=== PATIENT | female | born 1975 | race Caucasian/White ===

== ENCOUNTER → 2023-09-17 17:47 | Outpatient (REF) | payer OTHER, SELFPAY | LOC: HWWDC 17:47 | PROVIDERS: ATTENDING PHYSICIAN Family Medicine | DX: Z12.31 Encounter for screening mammogram for malignant neoplasm of breast (principal) | CPT/HCPCS: 77063; 77067 ==

== ENCOUNTER → 2024-11-09 08:17 | Outpatient (REF) | payer OTHER, SELFPAY | LOC: HWRAD 08:17 | PROVIDERS: ATTENDING PHYSICIAN Family Medicine | DX: E28.319 Asymptomatic premature menopause (principal); Z12.31 Encounter for screening mammogram for malignant neoplasm of breast | CPT/HCPCS: 77063; 77067; 77080 ==

== ENCOUNTER 2024-12-24 10:37 | Emergency (ER) | payer OTHER, SELFPAY ==
[2024-12-24] VITALS (9 sets, daily range): BP systolic 111–151; BP diastolic 80–105; BMI 17.8
[2024-12-24 11:23] LABS: % Basophils 0.2 % (0-2); % Eosinophils 0.1 % (0-6); % Immature Granulocytes 0.2 % (0-0.5); % Monocytes 10.3 % (1.7-9.3); % Neutrophils 83.2 % (42.2-75.2); Absolute Lymphocytes 0.5 10^3/uL (1.2-3.4); Absolute Monocytes 0.9 10^3/uL (0.1-0.6); Hematocrit 40.2 % (37.0-47.0); Hemoglobin 14.1 g/dL (12.0-16.0); Mean Corp Hgb Conc. 35.1 g/dL (33.0-37.0); Mean Corpuscular Hgb 30.2 pg (27.0-31.0); Mean Corpuscular Volume 86.1 fL (81.0-99.0); Mean Platelet Volume 8.7 fL (7.4-10.4); Nucleated Red Blood Cells % 0 %; Platelet Count 261 10^3/uL (130-400); Red Blood Cell Count 4.67 10^6/uL (4.20-5.40); Red Cell Dist. Width 12.9 % (11.5-14.5); White Blood Cell Count 8.4 10^3/uL (4.8-10.8)
[2024-12-24 11:43] LABS: ALT (SGPT) 33 U/L (0-35); AST (SGOT) 36 U/L (14-36); Albumin 4.3 g/dl (3.5-5.0); Alkaline Phosphatase 111 U/L (38-126); Blood Urea Nitrogen 17 mg/dl (7-17); Calcium 9.3 mg/dl (8.4-10.2); Carbon Dioxide 25 mmol/L (22-30); Chloride 102 mmol/L (98-107); Glucose 120 mg/dl (70-99); Lipase 36 U/L (23-300); Potassium 4.5 mmol/L (3.5-5.1); Sodium 134 mmol/L (135-145); Total Bilirubin 0.8 mg/dl (0.2-1.3); Total Protein 7.4 g/dl (6.3-8.2); eGFR > 60.00
[2024-12-24 11:45] LABS: Troponin I < 0.012 ng/ml
--- NOTE | 2024-12-24 13:19 | ED.GENMED ---
History of Present Illness
<Gabrielle Rangel PA-C - Last Filed: 12/24/24 13:33>
General
Chief Complaint: Chest Pain
Source: patient
Exam Limitations: none
Time Seen by Provider: 12/24/24 12:38
Nursing documentation reviewed up to this point in time: agreed with
History of Present Illness
History of Present Illness:
pt is a 49 y/o F with no chronic problems
here with 2 dasy GERD symptoms in her throat and chest and then today around 830 am started feeling worsening chest pain in the center of chest through to her back
it feels a little better now than it did earlier
she also felt achiness all over, and some chilsl like she might come down with something or a fever
took tylenol around 830 and fdeels that the chills/achiness is better
still has the reflux symptoms
started pepcid last night and today
she also woke up with some tingling in her hands
that resolved
she has not had any nausea, vomiting, sweatiness, cough, cold, back pain, urianry sytpmoms, etc
Past History
<Gabrielle Rangel PA-C - Last Filed: 12/24/24 13:33>
Past History
ED Past Medical History: None
ED Past Surgical History: Orthopedic
Social History
Living: with family
Course
<Gabrielle Rangel PA-C - Last Filed: 12/24/24 13:33>
Orders/Labs/Results
Orders:
Orders
12/24/24 10:40
EKG [Electrocardiogram (*1)] Stat
Reason for Study: Chest Pain
EKG- Treatment ONCE
12/24/24 11:00
Complete Blood Count/With Diff Urgent
Comprehensive Metabolic Panel Urgent
Lipase Urgent
Magnesium Urgent
Phosphorus Urgent
TSH Reflex To Free T4 Urgent
Comment: ADD ON
Troponin I Urgent
12/24/24 13:08
Add On- LAB Urgent
Tests Added?: mag, phos
12/24/24 13:10
CT Chest PE Study Urgent
Comment:
Reason For Exam: chest pain, tingling in arms, tachy
0.9% Sodium Chloride 1000 ml [Nss] 1,000 ml IV BOLUS
Mag Hydrox/Al Hydrox/Simeth [Maalox] 30 ml Phenobarb/Hyoscy/Atropine/Scop [] 10 ml PO NOW
12/24/24 13:11
EKG- Treatment ONCE
12/24/24 13:23
Mag Hydrox/Al Hydrox/Simeth [Maalox] 30 ml .ROUTE .STK-MED ONE
Phenobarb/Hyoscy/Atropine/Scop [] 10 ml .ROUTE .STK-MED ONE
12/24/24 13:34
COVID-19 Antigen Urgent
Source: Nasal Swab
Influenza A+B Rapid Molecular Urgent
BARBARA Source: Nasal Swab
Specimen Description:
12/24/24 14:21
Troponin I Urgent
12/24/24 14:30
Electrocardiogram (*1) Urgent
Reason for Study: Chest Pain
12/24/24 14:44
Acetaminophen [Tylenol] 1,000 mg PO NOW STA
12/24/24 14:47
Ketorolac [Toradol] 15 mg IV NOW STA
12/24/24 16:25
Add On- LAB Urgent
Tests Added?: tsh reflex t4
0.9% Sodium Chloride 500 ml [Nss] 500 ml IV BOLUS
Abnormal Lab Results
12/24/24
11:00
Absolute Neuts (auto) 7.0 H 10^3/uL
(1.4-6.5)
Absolute Lymphs (auto) 0.5 L 10^3/uL
(1.2-3.4)
Absolute Monos (auto) 0.9 H 10^3/uL
(0.1-0.6)
Neutrophils % 83.2 H %
(42.2-75.2)
Lymphocytes % 6.0 L %
(20.5-51.1)
Monocytes % 10.3 H %
(1.7-9.3)
Sodium 134 L mmol/L
(135-145)
Glucose 120 H mg/dl
(70-99)
12/24/24 11:00
12/24/24 11:00
Vital Signs
Initial and Last Documented VS:
Initial Vital Signs
Temp Pulse Resp BP Pulse Ox
99.0 F 126 18 151/105 99
12/24/24 10:50 12/24/24 10:50 12/24/24 10:50 12/24/24 10:50 12/24/24 10:50
Last Documented Vital Signs
Temp Pulse Resp BP Pulse Ox
98.5 F 126 23 145/102 100
12/24/24 14:46 12/24/24 14:46 12/24/24 14:46 12/24/24 14:46 12/24/24 14:46
<Chrystal Terry MD - Last Filed: 12/24/24 16:45>
Orders/Labs/Results
Orders:
Orders
12/24/24 10:40
EKG [Electrocardiogram (*1)] Stat
Reason for Study: Chest Pain
EKG- Treatment ONCE
12/24/24 11:00
Complete Blood Count/With Diff Urgent
Comprehensive Metabolic Panel Urgent
Lipase Urgent
Magnesium Urgent
Phosphorus Urgent
TSH Reflex To Free T4 Urgent
Comment: ADD ON
Troponin I Urgent
12/24/24 13:08
Add On- LAB Urgent
Tests Added?: mag, phos
12/24/24 13:10
CT Chest PE Study Urgent
Comment:
Reason For Exam: chest pain, tingling in arms, tachy
0.9% Sodium Chloride 1000 ml [Nss] 1,000 ml IV BOLUS
Mag Hydrox/Al Hydrox/Simeth [Maalox] 30 ml Phenobarb/Hyoscy/Atropine/Scop [] 10 ml PO NOW
12/24/24 13:11
EKG- Treatment ONCE
12/24/24 13:23
Mag Hydrox/Al Hydrox/Simeth [Maalox] 30 ml .ROUTE .STK-MED ONE
Phenobarb/Hyoscy/Atropine/Scop [] 10 ml .ROUTE .STK-MED ONE
12/24/24 13:34
COVID-19 Antigen Urgent
Source: Nasal Swab
Influenza A+B Rapid Molecular Urgent
BARBARA Source: Nasal Swab
Specimen Description:
12/24/24 14:21
Troponin I Urgent
12/24/24 14:30
Electrocardiogram (*1) Urgent
Reason for Study: Chest Pain
12/24/24 14:44
Acetaminophen [Tylenol] 1,000 mg PO NOW STA
12/24/24 14:47
Ketorolac [Toradol] 15 mg IV NOW STA
12/24/24 16:25
Add On- LAB Urgent
Tests Added?: tsh reflex t4
0.9% Sodium Chloride 500 ml [Nss] 500 ml IV BOLUS
Abnormal Lab Results
12/24/24
11:00
Absolute Neuts (auto) 7.0 H 10^3/uL
(1.4-6.5)
Absolute Lymphs (auto) 0.5 L 10^3/uL
(1.2-3.4)
Absolute Monos (auto) 0.9 H 10^3/uL
(0.1-0.6)
Neutrophils % 83.2 H %
(42.2-75.2)
Lymphocytes % 6.0 L %
(20.5-51.1)
Monocytes % 10.3 H %
(1.7-9.3)
Sodium 134 L mmol/L
(135-145)
Glucose 120 H mg/dl
(70-99)
12/24/24 11:00
12/24/24 11:00
Vital Signs
Initial and Last Documented VS:
Initial Vital Signs
Temp Pulse Resp BP Pulse Ox
99.0 F 126 18 151/105 99
12/24/24 10:50 12/24/24 10:50 12/24/24 10:50 12/24/24 10:50 12/24/24 10:50
Last Documented Vital Signs
Temp Pulse Resp BP Pulse Ox
98.5 F 126 23 145/102 100
12/24/24 14:46 12/24/24 14:46 12/24/24 14:46 12/24/24 14:46 12/24/24 14:46
ED Attending Note
<Gabrielle Rangel PA-C - Last Filed: 12/24/24 13:33>
-
Portions of this chart may have been created with voice recognition software.� Occasional wrong word or��sound alike� substitutions may have occurred due to the inherent limitations of voice recognition software.
<Chrystal Terry MD - Last Filed: 12/24/24 16:45>
ED Attending Note
Patient seen and examined by attending physician: Yes
I performed the substantive portion of visit, reviewed & personally made and approve the management plan that is documented in note by myself or CAMILLE.: Yes
ED Attending Note:
Patient appears nontoxic and well. She denies shortness of breath. Her troponins are both negative. She admits to feeling chills and bodyaches. I rechecked her oral temp is 99.2. Her heart rate is 110. She is still refusing a rectal
temperature. I suspect her heart rate is elevated due to mild fever. CT shows no sign of PE, pneumonia or aortic dissection. Given she has 2 normal troponins, it is doubtful she is ACS. On exam, her heart sounds tachycardic and regular. Her
lungs are clear. She appears well and comfortable
Discharge Plan
Departure
Prescriptions:
No Action
Advil
600 mg PO Q6H PRN (Reason: back pain)
Referrals:
Leatha Gonzalez DO [Family Provider] -
Interventions
Interventions:
*Risk Screen - Suicide Last Done: 12/24/24 10:50
*General Assessment Last Done: 12/24/24 10:50
*Neglect/Abuse Screening Last Done: 12/24/24 13:07
*ED- Fall Risk Assessment Last Done: 12/24/24 13:07
*ED COVID-19 Vaccine History Last Done: 12/24/24 13:07
ED- Cardiac Assessment Last Done: 12/24/24 13:07
Discharge Date and Time
Print Language: CYMRO
[2024-12-24] MEDS: MAALOX 40 PO (13:26)
[2024-12-24] MEDS: NSS 1000 IV (13:27)
[2024-12-24 13:52] LABS: Phosphorus 3.4 mg/dl (2.5-4.5)
[2024-12-24 13:54] LABS: COVID-19 Antigen Negative (Negative)
[2024-12-24 14:49] LABS: Troponin I < 0.012 ng/ml
--- NOTE | 2024-12-24 14:54 | EDRN ---
the pts HR went from the 90's to the 120-130's, this RN notified Gabrielle BLACKMAN, EKG performed, temperature checked and the pt is afebrile
[2024-12-24] MEDS: TORADOL 15 MG IV (15:10)
[2024-12-24] MEDS: TYLENOL 1000 MG PO (15:10)
[2024-12-24] MEDS: NSS 500 IV (16:29)
[2024-12-24 17:43] LABS: TSH Reflex To Free T4 0.91 uIU/ml (0.47-4.68)
[2024-12-24 17:51] LABS: Urine Albumin Negative (Neg - Trace); Urine Bilirubin Negative (Negative); Urine Character Clear (Clear); Urine Glucose Negative (Negative); Urine Ketone 3+ (Negative); Urine Leukocyte Negative (Negative); Urine Nitrite Negative (Negative); Urine Occult Blood 2+ (Negative); Urine Urobilinogen Negative (Neg - 1+)
[2024-12-24 17:56] LABS: Urine Color Straw
[2024-12-24 18:27] LABS: Urine Red Blood Cell 16-20 /HPF (0-2)
[2024-12-24 18:28] LABS: Urine White Cell 0-2 /HPF (0-5)
== END 2024-12-24 17:46 | disposition home or self-care (01) ==
LOC: EMR 10:37
PROVIDERS: Emergency Medicine; Physician Assistant; EMERGENCY PHYSICIAN Emergency Medicine; FAMILY PHYSICIAN Family Medicine
DX: K20.90 Esophagitis, unspecified without bleeding (principal); R07.9 Chest pain, unspecified; Z11.52 Encounter for screening for COVID-19
CPT/HCPCS: 96374; 96361; 99284; 71275; 80053; 81003; 81015; 83690; 83735; 84100; 84443; 84484; 85025; 87502; 87811; 93005; Q9967

== ENCOUNTER 2024-12-26 23:40 | Inpatient (IN) | payer OTHER, SELFPAY ==
[2024-12-26 17:01] VITALS: BP 155/102
[2024-12-26 17:28] LABS: % Basophils 0.6 % (0-2); % Eosinophils 0.6 % (0-6); % Immature Granulocytes 0.2 % (0-0.5); % Lymphocytes 9.4 % (20.5-51.1); % Monocytes 14.9 % (1.7-9.3); % Neutrophils 74.3 % (42.2-75.2); Absolute Lymphocytes 0.5 10^3/uL (1.2-3.4); Absolute Monocytes 0.8 10^3/uL (0.1-0.6); Hematocrit 35.4 % (37.0-47.0); Hemoglobin 12.8 g/dL (12.0-16.0); Mean Corp Hgb Conc. 36.2 g/dL (33.0-37.0); Mean Corpuscular Hgb 30.3 pg (27.0-31.0); Mean Corpuscular Volume 83.7 fL (81.0-99.0); Mean Platelet Volume 8.5 fL (7.4-10.4); Nucleated Red Blood Cells % 0 %; Platelet Count 232 10^3/uL (130-400); Red Blood Cell Count 4.23 10^6/uL (4.20-5.40); Red Cell Dist. Width 12.7 % (11.5-14.5); White Blood Cell Count 5.4 10^3/uL (4.8-10.8)
[2024-12-26 17:44] LABS: ALT (SGPT) 50 U/L (0-35); AST (SGOT) 49 U/L (14-36); Alkaline Phosphatase 112 U/L (38-126); Blood Urea Nitrogen 9 mg/dl (7-17); Calcium 8.4 mg/dl (8.4-10.2); Carbon Dioxide 21 mmol/L (22-30); Chloride 104 mmol/L (98-107); Glucose 137 mg/dl (70-99); Potassium 3.5 mmol/L (3.5-5.1); Sodium 134 mmol/L (135-145); Total Bilirubin 0.6 mg/dl (0.2-1.3); Total Protein 6.6 g/dl (6.3-8.2); eGFR > 60.00
[2024-12-26 17:45] LABS: Lipase 33 U/L (23-300)
[2024-12-26 17:51] LABS: COVID-19 Antigen Negative (Negative)
[2024-12-26 20:50] VITALS: BP 143/95
[2024-12-26] MEDS: PROTONIX IV 40 MG IV (20:52)
[2024-12-26 20:54] VITALS: BMI 18.4
[2024-12-26 21:00] VITALS: BP 141/92
[2024-12-26] MEDS: TYLENOL 1000 MG PO (21:16)
[2024-12-26 21:22] LABS: HCG, Serum Qualitative Screen Negative
[2024-12-26 22:00] VITALS: BP 134/88
--- NOTE | 2024-12-26 22:40 | ED.GENMED ---
History of Present Illness
General
Chief Complaint: Abdominal Symptoms
Time Seen by Provider: 12/26/24 19:57
History of Present Illness
History of Present Illness:
49-year-old female without significant past medical history, presenting to the emergency department with persistent upper abdominal discomfort and episode of vomiting. Patient reports she was seen in the hospital 2 days after symptoms started. At
that time, patient reporting upper abdominal pain, burning pain into her chest. Patient noted to be tachycardic, had CT imaging of her chest for rule out acute pathology. Patient found to have esophagitis, with her symptoms. Patient sent home on
Pepcid. She notes since discharge, has still been having upper abdominal discomfort, nausea, chills. She went to urgent care today for additional medications, was prescribed sucralfate. She went to [facility] to pick it up and was noted to have
episode of emesis while at [facility]. Patient was subsequently sent to the hospital. Does note prior to symptom onset, was eating a lot of pasta sauce. Denies changes in her stool. Denies cardiac issues. She has also been taking Tylenol for her
symptoms. Denies any extensive ibuprofen abuse. Denies additional acute medical complaints
Past History
Past History
ED Past Medical History: None
ED Past Surgical History: Orthopedic
Social History
Living: with family
Phy Exam
Physical Exam
Physical Exam:
General: Well-appearing, no clinical signs of dehydration, nontoxic and in no acute distress
HEENT: protecting airway
Neck: appears supple
CV: Tachycardic, regular rhythm
Resp: No accessory muscle use, no increased work of breathing, lungs clear to auscultation bilaterally
Abd: Soft and non-distended, mild tenderness to the upper abdomen without rebound or guarding
Extremities: No deformities, no swelling
Neuro: alert, no focal neurologic deficit
: deferred
Rectal: deferred
Psych: Normal affect
Skin: Intact
Course
Orders/Labs/Results
Orders:
Orders
12/26/24 17:13
COVID-19 Antigen Urgent
Source: Nasal Swab
Complete Blood Count/With Diff Urgent
Comprehensive Metabolic Panel Urgent
HCG, Serum Qualitative Screen Urgent
Comment: ADD ON
Lipase Urgent
Influenza A+B Rapid Molecular Urgent
BARBARA Source: Nasal Swab
Specimen Description:
12/26/24 20:36
CT Abd/pelvis W Iv Cont Urgent
Comment:
Reason For Exam: upper abdominal discomfort, vomiting
Pantoprazole [Protonix IV] 40 mg IV NOW STA
12/26/24 20:39
Electrocardiogram (*1) Urgent
EKG- Treatment ONCE
12/26/24 20:52
Add On- LAB Urgent
Tests Added?: serum preg
12/26/24 21:00
Acetaminophen [Tylenol] 1,000 mg PO NOW STA
Abnormal Lab Results
12/26/24
17:13
Hct 35.4 L %
(37.0-47.0)
Absolute Lymphs (auto) 0.5 L 10^3/uL
(1.2-3.4)
Absolute Monos (auto) 0.8 H 10^3/uL
(0.1-0.6)
Lymphocytes % 9.4 L %
(20.5-51.1)
Monocytes % 14.9 H %
(1.7-9.3)
Sodium 134 L mmol/L
(135-145)
Carbon Dioxide 21 L mmol/L
(22-30)
Creatinine 0.5 L mg/dL
(0.6-1.0)
Glucose 137 H mg/dl
(70-99)
AST 49 H U/L
(14-36)
ALT 50 H U/L
(0-35)
12/26/24 17:13
12/26/24 17:13
Vital Signs
Initial and Last Documented VS:
Initial Vital Signs
Temp Pulse Resp BP Pulse Ox
100.2 F 125 20 155/102 99
12/26/24 17:01 12/26/24 17:01 12/26/24 17:01 12/26/24 17:01 12/26/24 17:01
Last Documented Vital Signs
Temp Pulse Resp BP Pulse Ox
100.7 F H 117 20 134/88 98
12/26/24 20:56 12/26/24 22:00 12/26/24 17:01 12/26/24 22:00 12/26/24 22:00
MDM/Problems Addressed
MDM/Problems Addressed:
49-year-old female presenting to the emergency department for persistent upper abdominal discomfort and vomiting. Vital signs on arrival significant for tachycardia.
On exam patient resting comfortably, no acute distress or discomfort. Patient's hospital visit from 12/24 was reviewed, diagnosis of esophagitis. Patient was noted to be tachycardic at that time. Ultimate component. Patient is very frail, dry
mucous membranes, back to poor p.o. intake. Patient had dedicated CT imaging of her chest on prior visit, however she abdominal imaging. Given persistence of symptoms, will plan for repeat laboratory analysis and CT imaging of the abdomen and
pelvis to rule out additional acute pathology. Will start patient IV fluids and pantoprazole, again for suspected gastric pathology. EKG obtained, sinus tachycardia, unchanged from prior.
23:00 - While in the ER, patient noted to have low-grade temperature. No leukocytosis. CT does show prominent loops of small bowel in the central abdomen with air-fluid levels, likely representing enteritis. There is again thickening of the lower
esophagus, compatible with esophagitis. Otherwise no significant acute pathology. Fever has resolved, however patient remains tachycardic, 110s to 120s. Suspected underlying dehydration, noted to be tachycardic on prior visit 2 days ago. In the
setting of persistent GI symptoms, failure of outpatient therapy, concern of dehydration, will plan for admission for potential GI consultation
*EKG
Interpreted by ED Provider?: Yes
EKG Intrepretation Date: 12/26/24
Interpretation: normal
Comparison EKG: no changes (12/24/24)
Heart Rate: 115
Rate: tachycardiac
Rhythm: sinus
Festus: normal axis
Interval: normal interval
QRS Pattern: normal QRS
Ischemia: no ischemia
*Critical Care Note
Total Time (30-74mins, 75-104mins- exclusive of procedures): Not Applicable
ED Attending Note
-
Portions of this chart may have been created with voice recognition software.� Occasional wrong word or��sound alike� substitutions may have occurred due to the inherent limitations of voice recognition software.
Discharge Plan
Departure
Prescriptions:
No Action
Advil
600 mg PO Q6H PRN (Reason: back pain)
pantoprazole [Protonix] 40 mg tablet,delayed release (DR/EC)
40 mg PO DAILY Qty: 30 0RF
Referrals:
Leatha Gonzalez DO [Family Provider] -
Interventions
Interventions:
*Risk Screen - Suicide Last Done: 12/26/24 17:01
*General Assessment Last Done: 12/26/24 17:01
*Neglect/Abuse Screening Last Done: 12/26/24 20:54
*ED- Fall Risk Assessment Last Done: 12/26/24 20:54
*ED COVID-19 Vaccine History Last Done: 12/26/24 20:54
Discharge Date and Time
Print Language: SLOVAK
[2024-12-26] MEDS: NSS 1000 IV (23:09)
[2024-12-26] MEDS: FLUSH (NSS) 1 FLUSH IV (23:19)
--- NOTE | 2024-12-26 23:32 | HPS.HSE ---
Family Physician
-
Family Physician: Leatha Gonzalez, DO
Chief Complaint
-
Allergies
Allergy/AdvReac Type Severity Reaction Status Date / Time
codeine Allergy Nausea Verified 12/26/24 17:04
Home Medications
Advil 600 mg PO Q6H PRN back pain 09/24/18
acetaminophen 500 mg tablet (Acetaminophen Extra Strength) 1,000 mg PO Q6H PRN pain 12/26/24
alendronate 70 mg tablet 70 mg PO QWEEK 12/26/24
calcium 600 mg (as carbonate)-vitamin D3 20 mcg (800 unit) tablet (Caltrate with Vitamin D3) 1 tab PO DAILY 12/26/24
calcium carbonate (Tums Extra Strength Smoothies) 2 tab PO .BEFORE MEALS 12/26/24
chromium 200 mcg tablet 200 mcg PO HS 12/26/24
duloxetine 60 mg capsule,delayed release sprinkle 60 mg PO .EVERYOTHER 12/26/24
duloxetine 60 mg capsule,delayed release sprinkle 120 mg PO .EVERYOTHER 12/26/24
famotidine 20 mg tablet (Pepcid AC) 20 mg PO BID 12/26/24
History of Present Illness
49-year-old female past medical history of mitral valve prolapse, osteoporosis, chronic back pain, presenting with fever, chest/epigastric pain and vomiting. 6 days ago she ate a lot of Pasta sauce at a restaurant. 2 days later she developed
burning pain in her chest radiating up to her throat. She started also having fevers and chills. Came to the emergency room 2 days ago and had a cardiac workup and CT chest which showed esophagitis. She was discharged with Pepcid. Since then she
notes that Pepcid improves her symptoms when she is not eating continues to have severe pain after eating. Went to urgent care today and was prescribed sucralfate. He went to hot die picker the prescription to [facility] and had an episode of vomiting which
was nonbloody. He denies any abdominal pain or diarrhea. Denies a prior history of GERD. Denies any weight loss. She does use NSAIDs occasionally for back pain. Has been taking Tylenol regularly for chills.
She denies sensation of food getting stuck in her throat.
Drinks alcohol occasionally. Denies smoking.
No family history of GI problems.
Medical History
Past Medical History
Past Medical History: Reports Other (mitral valve prolapse, osteoporosis, chronic back pain)
Past Surgical History: Reports Other (shoulder surgery )
Social History
Tobacco: Non-smoker
Alcohol: Occasional
Drug: None
Family History
Family History: Not pertinent
Allergies / Home Medications
Allergies reflects when Allergies were last updated in [facility].
Home Medications with original date entered in [facility]
Allergy/Medication List:
Allergies
Allergy/AdvReac Type Severity Reaction Status Date / Time
codeine Allergy Nausea Verified 12/26/24 17:04
Home Medications
Advil 600 mg PO Q6H PRN back pain 09/24/18
acetaminophen 500 mg tablet (Acetaminophen Extra Strength) 1,000 mg PO Q6H PRN pain 12/26/24
alendronate 70 mg tablet 70 mg PO QWEEK 12/26/24
calcium 600 mg (as carbonate)-vitamin D3 20 mcg (800 unit) tablet (Caltrate with Vitamin D3) 1 tab PO DAILY 12/26/24
calcium carbonate (Tums Extra Strength Smoothies) 2 tab PO .BEFORE MEALS 12/26/24
chromium 200 mcg tablet 200 mcg PO HS 12/26/24
duloxetine 60 mg capsule,delayed release sprinkle 60 mg PO .EVERYOTHER 12/26/24
duloxetine 60 mg capsule,delayed release sprinkle 120 mg PO .EVERYOTHER 12/26/24
famotidine 20 mg tablet (Pepcid AC) 20 mg PO BID 12/26/24
Review of Systems
-
History Source: Patient
A 12 point ROS was completed and negative except as noted: Yes
Constitutional: Reports No Symptoms
EENT: Reports No Symptoms
Respiratory: Reports No Symptoms
Cardiac: Reports See HPI
Abdomen/GI: Reports See HPI
: Reports No Symptoms
Musculoskeletal: Reports No Symptoms
Skin: Reports No Symptoms
Neurological: Reports No Symptoms
Endocrine: Reports No Symptoms
Hematologic/Lymphatic: Reports No Symptoms
Psych: Reports No Symptoms
Physical Exam
Vital Signs
Vital Signs
Temp Pulse Resp BP Pulse Ox
100.7 F H 108 20 134/88 98
12/26/24 20:56 12/26/24 23:19 12/26/24 17:01 12/26/24 22:00 12/26/24 22:00
Physical Exam
General: Well Developed, Well Nourished and No Apparent Distress
HEENT: NormoCephalic, Moist mucous membranes and Atraumatic
Respiratory: Clear
Cardiac: S1/S2 and Regular Rhythm; No Murmur or Rub
GI: Soft, Non Tender, Non Distended and Normal Bowel Sounds; No Organomegaly
Rectal: Deferred by Provider
Musculoskeletal: No Clubbing, No Cyanosis and No Edema
Skin: No Rash
Neuro: Nonfocal/grossly intact
Laboratory Results
-
12/26/24 17:13
12/26/24 17:13
Laboratory Results
Total Bilirubin 0.6 mg/dl (0.2-1.3) 12/26/24 17:13
AST 49 U/L (14-36) H 12/26/24 17:13
ALT 50 U/L (0-35) H 12/26/24 17:13
Alkaline Phosphatase 112 U/L (38-126) 12/26/24 17:13
Lipase 33 U/L (23-300) 12/26/24 17:13
Data Reviewed
-
Lab Data: Labs Reviewed by me
Old Records: Reviewed
Impression/Plan
-
IMPRESSION:
PLAN:
# Sepsis (fever, tachycardia) secondary to acute enteritis likely viral related to pasta
-N.p.o.
- Check blood cultures
- IV fluids
- Zofran
# Esophagitis possibly related to alendronate/NSAID use
-Stop alendronate, Advil
- Protonix 40 twice daily
- GI consulted
# Mild transaminitis
- Continue to monitor
Chronic back pain
- Continue duloxetine
Mitral valve prolapse
Osteoporosis
-hold alendronate
Full code
DVT prophylaxis-heparin
N.p.o.
[2024-12-27] VITALS (8 sets, daily range): BP systolic 115–155; BP diastolic 76–98; BMI 17.6
[2024-12-27] MEDS: TYLENOL 1000 MG PO ×4 (02:01→20:21)
[2024-12-27] MEDS: NSS 1000 IV ×2 (06:28→11:19)
[2024-12-27] MEDS: HEPARIN 5000 UNITS SC ×2 (07:47→20:11)
[2024-12-27] MEDS: PROTONIX IV 40 MG IV ×2 (07:48→20:16)
[2024-12-27] MEDS: OSCAL 500 + D 500 MG PO (07:49)
[2024-12-27] MEDS: NSS (PRESERVATIVE FREE) 10 ML IV ×2 (07:49→20:18)
[2024-12-27] MEDS: CYMBALTA DELAYED RELEASE 60 MG PO (07:49)
[2024-12-27] MEDS: PEPCID 20 MG PO ×2 (07:49→20:14)
[2024-12-27 08:26] LABS: ALT (SGPT) 38 U/L (0-35); AST (SGOT) 27 U/L (14-36); Albumin 3.7 g/dl (3.5-5.0); Alkaline Phosphatase 97 U/L (38-126); Blood Urea Nitrogen 6 mg/dl (7-17); Calcium 7.6 mg/dl (8.4-10.2); Carbon Dioxide 19 mmol/L (22-30); Chloride 112 mmol/L (98-107); Estimated Creatinine Clearance 69 ml/min; Glucose 104 mg/dl (70-99); Potassium 3.5 mmol/L (3.5-5.1); Sodium 141 mmol/L (135-145); Total Bilirubin 0.7 mg/dl (0.2-1.3); eGFR > 60.00
[2024-12-27 08:31] LABS: Hemoglobin 12.7 g/dL (12.0-16.0); Mean Corp Hgb Conc. 35.3 g/dL (33.0-37.0); Mean Corpuscular Hgb 30.3 pg (27.0-31.0); Mean Corpuscular Volume 85.9 fL (81.0-99.0); Mean Platelet Volume 8.6 fL (7.4-10.4); Platelet Count 234 10^3/uL (130-400); Red Blood Cell Count 4.19 10^6/uL (4.20-5.40); Red Cell Dist. Width 13.2 % (11.5-14.5); White Blood Cell Count 5.5 10^3/uL (4.8-10.8)
[2024-12-27 10:40] LABS: % Basophils 0.9 % (0-2); % Eosinophils 1.3 % (0-6); % Immature Granulocytes 0.2 % (0-0.5); % Lymphocytes 12.3 % (20.5-51.1); % Monocytes 13.9 % (1.7-9.3); % Neutrophils 71.4 % (42.2-75.2); Absolute Basophils 0.1 10^3/uL (0-0.2); Absolute Eosinophils 0.1 10^3/uL (0-0.7); Absolute Lymphocytes 0.7 10^3/uL (1.2-3.4); Absolute Monocytes 0.8 10^3/uL (0.1-0.6); Absolute Neutrophils 3.9 10^3/uL (1.4-6.5); Nucleated Red Blood Cells % 0 %
--- NOTE | 2024-12-27 12:02 | CON.GI ---
Consultation
-
Date/Time Consultation Requested: 12/27/2024
Date/Time Consultation Performed: 12/27/2024
Performing Provider: Edmundo Almanza
Reason for Consultation: GERD
Medical History
Chief Complaint / HPI
Chief Complaint: Heartburn
History of Present Illness:
49 year-old female with h/o mitral valve prolapse, osteoporosis, and chronic back pain who p/w fever, diffuse joint pain, and heartburn when she eats. She had burning pain in her chest radiating up to her throat and came to ER and had -ve cardiac
workup and CT chest which showed esophagitis on 12/24. She was discharged with Pepcid. She returned to ER with pyrosis after eating and vomiting. Occasional NSAIDs use.
Past Medical History
Past Medical History: Other
Past Surgical History: Other
Social History
Tobacco: Non-Smoker
Alcohol: Occasional
Family History
Family History: Reviewed & Not Pertinent
Allergies / Home Medications
Allergy/AdvReac Type Severity Reaction Status Date / Time
codeine Allergy Nausea Verified 12/26/24 17:04
�Medication �Instructions �Recorded
Advil 600 mg PO Q6H PRN back pain 09/24/18
acetaminophen 500 mg tablet 1,000 mg PO Q6H PRN pain 12/26/24
(Acetaminophen Extra Strength)
alendronate 70 mg tablet 70 mg PO QWEEK BONE 12/26/24
calcium 600 mg (as 1 tab PO DAILY Supplement 12/26/24
carbonate)-vitamin D3 20 mcg (800
unit) tablet (Caltrate with
Vitamin D3)
calcium carbonate (Tums Extra 2 tab PO .BEFORE MEALS Supplement 12/26/24
Strength Smoothies)
chromium 200 mcg tablet 200 mcg PO HS Supplement 12/26/24
duloxetine 60 mg capsule,delayed 60 mg PO .EVERYOTHER Mental 12/26/24
release sprinkle Health/Anxiety
duloxetine 60 mg capsule,delayed 120 mg PO .EVERYOTHER Mental 12/26/24
release sprinkle Health/Anxiety
famotidine 20 mg tablet (Pepcid AC) 20 mg PO BID Gastrointestinal Issue 12/26/24
Review of Systems
Vital Signs
Temp Pulse Resp BP Pulse Ox
98.2 F 105 18 152/98 97
12/27/24 11:34 12/27/24 11:34 12/27/24 11:34 12/27/24 11:34 12/27/24 11:34
Physical Exam
Exam
General: Well Developed and Well Nourished
HEENT: Normocephalic
Respiratory: Clear
Cardiac: S1/S2
GI: Soft, Non Tender, Non Distended and Normal Bowel Sounds
Results
WBC 5.5 10^3/uL (4.8-10.8) 12/27/24 07:15
Hgb 12.7 g/dL (12.0-16.0) 12/27/24 07:15
Hct 36.0 % (37.0-47.0) L 12/27/24 07:15
MCV 85.9 fL (81.0-99.0) 12/27/24 07:15
Plt Count 234 10^3/uL (130-400) 12/27/24 07:15
Absolute Neuts (auto) 3.9 10^3/uL (1.4-6.5) 12/27/24 07:15
Sodium 141 mmol/L (135-145) 12/27/24 07:15
Potassium 3.5 mmol/L (3.5-5.1) 12/27/24 07:15
Chloride 112 mmol/L (98-107) H 12/27/24 07:15
Carbon Dioxide 19 mmol/L (22-30) L 12/27/24 07:15
BUN 6 mg/dl (7-17) L 12/27/24 07:15
Creatinine 0.5 mg/dL (0.6-1.0) L 12/27/24 07:15
Calcium 7.6 mg/dl (8.4-10.2) L 12/27/24 07:15
Total Bilirubin 0.7 mg/dl (0.2-1.3) 12/27/24 07:15
AST 27 U/L (14-36) 12/27/24 07:15
ALT 38 U/L (0-35) H 12/27/24 07:15
Alkaline Phosphatase 97 U/L (38-126) 12/27/24 07:15
Lipase 33 U/L (23-300) 12/26/24 17:13
Diagnostic Image Results:
Prior GI Procedures:
EGD:
Colonoscopy:
Assessment / Plan
-
49 year-old female with h/o mitral valve prolapse, osteoporosis, and chronic back pain who p/w fever, diffuse joint pain, and heartburn when she eats. She had burning pain in her chest radiating up to her throat and came to ER and had -ve cardiac
workup and CT chest which showed esophagitis on 12/24. She was discharged with Pepcid. She returned to ER with pyrosis after eating and vomiting. Occasional NSAIDs use.
Impression / Rec:
1. Pyrosis - she denies GERD symptoms as baseline. Her symptoms started acutely, few days ago. Mostly c/o pyrosis after eating. Recent CT chest and CT abd/pel on admission showed esophagitis/enteritis. Will evaluate further with EGD. FLD
today, NPO midnight.
Total Time Spent with Patient (in minutes): 55
-
-
Thank you for consultation and allowing me to participate in the patient's care. Please call the [facility] consultant GI physician during the after hours with any questions or concerns.
--- NOTE | 2024-12-27 12:23 | W.PN.HOSP.TC ---
Today's Communication/Plan
-
see outlined plan
Assessment / Plan
Assessment / Plan
Assessment:
Sepsis POA (fever, tachycardia) with possible viral enteritis
- s/p sepsis protocol IVF
- FLD for now
- symptomatic control
- follow GI recs
Tachycardia
- sinus
- no evidence of ACS
- check TSH
- check AM trop
- check Echo
- place on tele
Heartburn/Esophagitis/Enteritis
- GI evaluated; EGD tomorrow
- continue PPI/H2 desmond
- stop Advil, stop alendronate
Mild transaminitis
- Continue to monitor
Chronic back pain
- Continue duloxetine
Mitral valve prolapse
Osteoporosis
- hold alendronate
DVT ppx: SC Heparin
Code: Full
Anticipated Discharge: > 48 hours
Subjective/Interval History
-
Date of Service: December 27, 2024
pain stable
no palpitations, SOB
Objective Data
-
Labs:
Laboratory Results
12/27/24
07:15
WBC 5.5
Hgb 12.7
Hct 36.0 L
Plt Count 234
Sodium 141
Potassium 3.5
Chloride 112 H
Carbon Dioxide 19 L
BUN 6 L
Creatinine 0.5 L
Glucose 104 H
Calcium 7.6 L
Total Bilirubin 0.7
AST 27
ALT 38 H
Alkaline Phosphatase 97
Vital Signs:
Vital Signs
Temp Pulse Resp BP Pulse Ox
98.2 F 105 18 152/98 97
12/27/24 11:34 12/27/24 11:34 12/27/24 11:34 12/27/24 11:34 12/27/24 11:34
I&O
12/26/24 12/27/24 12/28/24
06:59 06:59 06:59
Intake Total 600 / 600
Balance 600 / 600
Physical Exam
-
General: No Apparent Distress
HEENT: Normocephalic and Atraumatic
Respiratory: Negative Wheezes
Cardiac: Regular Rhythm, S1/S2 and Tachycardic
GI: Soft
Musculoskeletal: No Edema
Neuro: AO x 3
Psych: Calm
Data Reviewed
-
Total Time Spent with Patient (in minutes): 41
Labs: Labs Reviewed by me
[2024-12-28] VITALS (11 sets, daily range): BP systolic 16–132; BP diastolic 82–94
[2024-12-28] MEDS: TYLENOL 1000 MG PO ×2 (02:33→08:35)
[2024-12-28 07:01] LABS: Hematocrit 34.1 % (37.0-47.0); Hemoglobin 12.2 g/dL (12.0-16.0); Mean Corp Hgb Conc. 35.8 g/dL (33.0-37.0); Mean Corpuscular Volume 83.8 fL (81.0-99.0); Mean Platelet Volume 8.3 fL (7.4-10.4); Platelet Count 264 10^3/uL (130-400); Red Blood Cell Count 4.07 10^6/uL (4.20-5.40); Red Cell Dist. Width 12.7 % (11.5-14.5); White Blood Cell Count 4.4 10^3/uL (4.8-10.8)
[2024-12-28 07:23] LABS: Troponin I < 0.012 ng/ml
[2024-12-28 07:28] LABS: ALT (SGPT) 38 U/L (0-35); AST (SGOT) 32 U/L (14-36); Albumin 3.8 g/dl (3.5-5.0); Alkaline Phosphatase 98 U/L (38-126); Blood Urea Nitrogen 5 mg/dl (7-17); Calcium 8.5 mg/dl (8.4-10.2); Carbon Dioxide 23 mmol/L (22-30); Chloride 108 mmol/L (98-107); Estimated Creatinine Clearance 69 ml/min; Glucose 120 mg/dl (70-99); Potassium 3.3 mmol/L (3.5-5.1); Sodium 139 mmol/L (135-145); Total Bilirubin 0.6 mg/dl (0.2-1.3); Total Protein 6.1 g/dl (6.3-8.2); eGFR > 60.00
[2024-12-28 07:58] LABS: TSH Reflex To Free T4 2.93 uIU/ml (0.47-4.68)
[2024-12-28] MEDS: PROTONIX IV 40 MG IV (08:29)
[2024-12-28] MEDS: CYMBALTA DELAYED RELEASE 120 MG PO (08:29)
[2024-12-28] MEDS: PEPCID 20 MG PO (08:29)
[2024-12-28] MEDS: HEPARIN 5000 UNITS SC (08:29)
[2024-12-28] MEDS: NSS (PRESERVATIVE FREE) 10 ML IV (08:29)
[2024-12-28] MEDS: OSCAL 500 + D 500 MG PO (08:29)
[2024-12-28] MEDS: KCL 270 MEQ IV (08:44)
--- NOTE | 2024-12-28 09:14 | W.PN.HOSP.TC ---
Addendum entered and electronically signed by Baldemar Henson MD 12/28/24 14:31:
BMI, 17.6, underweight
Original Note:
Today's Communication/Plan
-
await Echo results
follow EGD results
Assessment / Plan
Assessment / Plan
Assessment:
Sepsis POA (fever, tachycardia) with possible viral enteritis
- s/p sepsis protocol IVF
- cultures negative
- NPO for EGD - see below
Tachycardia
- sinus
- no evidence of ACS
- TSH 2.93
- trop negatieve
- follow Tele: periods of sinus tach
- await Echo
Heartburn/Esophagitis/Enteritis
- GI evaluated; EGD today
- continue PPI/H2 desmond
- stop Advil, stop alendronate
Mild transaminitis
- Continue to monitor
Chronic back pain
- Continue duloxetine
Mitral valve prolapse
Osteoporosis
- hold alendronate
DVT ppx: SC Heparin
Code: Full
Anticipated Discharge: Within 24 hours
Subjective/Interval History
-
Date of Service: December 28, 2024
reports chest discomfort with eating or drinking
no chest pain or SOB at rest or ambulation otherwise
Objective Data
-
Labs:
Laboratory Results
12/28/24
06:49
WBC 4.4 L
Hgb 12.2
Hct 34.1 L
Plt Count 264
Sodium 139
Potassium 3.3 L
Chloride 108 H
Carbon Dioxide 23
BUN 5 L
Creatinine 0.6
Glucose 120 H
Calcium 8.5
Total Bilirubin 0.6
AST 32
ALT 38 H
Alkaline Phosphatase 98
Vital Signs:
Vital Signs
Temp Pulse Resp BP Pulse Ox
98.2 F 105 18 125/87 99
12/28/24 07:05 12/28/24 07:05 12/28/24 07:05 12/28/24 07:05 12/28/24 07:05
I&O
12/27/24 12/28/24 12/29/24
06:59 06:59 06:59
Intake Total 600 / 600 700 / 700
Balance 600 / 600 700 / 700
Physical Exam
-
General: No Apparent Distress
HEENT: Moist Mucous Membranes
Respiratory: Negative Wheezes
Cardiac: Regular Rhythm and S1/S2
GI: Soft
Musculoskeletal: No Edema
Neuro: AO x 3
Psych: Calm
Data Reviewed
-
Total Time Spent with Patient (in minutes): 42
Labs: Labs Reviewed by me
--- NOTE | 2024-12-28 11:09 | W.PN.UPDATE ---
Update Note
Progress Note Update
EGD showed severe LA grade D esophagitis up to 20 cm from GEJ. Will need maximal medical therapy w/ PPI BID and carafate 1 g q6, should also discontinue alendronate and use alternate therapy as this is likely contributing to her severe GERD. GI
s/o.
[2024-12-28] MEDS: CARAFATE SUSPENSION 1 GM PO (12:17)
--- NOTE | 2024-12-28 13:09 | W.DS.TRANS ---
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
-
Discharge Instructions:
Discharge Diagnosis/Procedures grade D esophagitis causing chest pain with oral
intake. Cardiac workup negative
Diet Regular
Activity As tolerated
Instructions:
Stand-Alone Forms:
Changes to Home Medications: Yes
Discharge Medications:
DC Medications w/original date entered in [facility]
acetaminophen 500 mg tablet (Acetaminophen Extra Strength) 1,000 mg PO Q6H PRN pain 12/26/24
calcium 600 mg (as carbonate)-vitamin D3 20 mcg (800 unit) tablet (Caltrate with Vitamin D3) 1 tab PO DAILY Supplement 12/26/24
calcium carbonate (Tums Extra Strength Smoothies) 2 tab PO .BEFORE MEALS Supplement 12/26/24
chromium 200 mcg tablet 200 mcg PO HS Supplement 12/26/24
duloxetine 60 mg capsule,delayed release sprinkle 60 mg PO .EVERYOTHER Mental Health/Anxiety 12/26/24
duloxetine 60 mg capsule,delayed release sprinkle 120 mg PO .EVERYOTHER Mental Health/Anxiety 12/26/24
famotidine 20 mg tablet (Pepcid AC) 20 mg PO BID Gastrointestinal Issue 12/26/24
pantoprazole 40 mg tablet,delayed release 40 mg PO BID #60 tabs 12/28/24
sucralfate 100 mg/mL oral suspension 1 g (10 mL) PO QID #1,200 mL 12/28/24
Home Medication Changes
stop Fosamax and NSAIDs
Pending Results: No
Total time spent discharging patient (in min): 41
--- NOTE | 2024-12-28 13:26 | CM ---
Met with patient to obtain information for assessment. Patient stated that she lives with her mother in a two story home with two steps to enter. She described herself as independent with her ADLs, personal care, dressing and bathing. She can do
housekeeping staff, cook, clean and does laundry. She drives and can transport herself and get to her provider appointments and does all of her own shopping. She is employed. She has never had VN or been to a SNF.
Patient has a prescription plan and goes to [facility] for all of her medications.
Her MD is, Leatha Gonzalez.
Plan: Case management will continue to follow and assist with discharge planning. Home no needs.
--- NOTE | 2024-12-28 13:45 | PN.CDI ---
CDI
- -
CDI:
Physician Documentation Request
Admit Date: 12/26/24 23:40
Dear Doctor Sixto,
Please review the following and provide your response in the progress notes.
Clinical Indicators:
Selected Entries
12/26/24
20:54 12/27/24
01:50
Body Mass Index (BMI) 18.4 17.6
Based on the above and your clinical assessment, please provide an associated diagnosis related to the BMI:
BMI, 17.6, underweight
BMI is not significant
Other, (please specify)
BMI < or = to 19
Underweight
Weight Loss
Cachectic
Anorexia
Use of terms such as suspected, likely, concern for, or probable (associated with a specific diagnosis that is being evaluated, monitored, or treated as if it exists) are acceptable and can be coded in the inpatient setting, when documented at the
time of discharge.
Thank you,
Edel Schwab RN BSN CCDS
CDI Specialist
Please contact via tiger text
Please use your independent medical judgment in providing your response.
== END 2024-12-28 14:57 | disposition home or self-care (01) | DRG 872 ==
LOC: 4 EAST ACU 23:40
PROVIDERS: ADMITTING PHYSICIAN Hospitalist; ATTENDING PHYSICIAN Internal Medicine; CONSULT PHYSICIAN Internal Medicine Gastroenterology; EMERGENCY PHYSICIAN Student in an Organized Health Care Education/Training Program; FAMILY PHYSICIAN Family Medicine
PROC: 0DB18ZX Excision of Upper Esophagus, Via Natural or Artificial Opening Endoscopic, Diagnostic (ICD-10-PCS; 2024-12-28)
DX: A41.9 Sepsis, unspecified organism (principal); Z68.1 Body mass index [BMI] 19.9 or less, adult; A08.4 Viral intestinal infection, unspecified; K21.00 Gastro-esophageal reflux disease with esophagitis, without bleeding; G89.29 Other chronic pain; I34.1 Nonrheumatic mitral (valve) prolapse; M81.0 Age-related osteoporosis without current pathological fracture; Z88.5 Allergy status to narcotic agent; F41.9 Anxiety disorder, unspecified; R13.10 Dysphagia, unspecified; Z79.83 Long term (current) use of bisphosphonates; Z79.899 Other long term (current) drug therapy; Z82.49 Family history of ischemic heart disease and other diseases of the circulatory system; Z11.52 Encounter for screening for COVID-19; R63.6 Underweight
CPT/HCPCS: 88305; 88312; 74177; 80053; 83690; 84443; 84484; 84703; 85025; 85027; 87040; 87502; 87811; 93005; 93306; 96361; 96374; 99285; Q9967

== ENCOUNTER 2025-04-30 06:07 | Day surgery (SDC) | payer OTHER, SELFPAY ==
[2025-04-30 08:26] VITALS: BMI 17.8
[2025-04-30 08:31] VITALS: BMI 17.8
[2025-04-30 08:39] VITALS: BP 146/95
[2025-04-30 12:46] VITALS: BP 112/80
[2025-04-30 13:00] VITALS: BP 111/82
== END 2025-04-30 13:21 | disposition home or self-care (01) ==
LOC: SDS 06:07
PROVIDERS: ATTENDING PHYSICIAN Internal Medicine Gastroenterology
DX: K22.89 Other specified disease of esophagus (principal); Z87.19 Personal history of other diseases of the digestive system
CPT/HCPCS: 43239; 88305